=== PATIENT | female | born 2000 | race Two or more races ===

== ENCOUNTER 2025-07-20 11:56 | Observation (INO) | payer MEDICAID ==
[2025-07-20] MEDS ORDERED: PREN-96 PO (12:21)
--- NOTE | 2025-07-21 11:01 | DVHDS2 ---
Physician Discharge Progress N Final Diagnosis: polyhydramnia 33 wks Operations or Procedures: Operations or Procedures nst reactive reviwed,sono Condition on Discharge: Good Disposition: Home Discharge Instructions: Diet: Regular Activity: No Restrictions, As Tolerated Follow Up/Referral: as scheduled. Medications: na Follow Up Care: Specialist: 4d Discharge Statement: "Patient was advised to return to the ER or call 911 if any headaches, dizziness, shortness of breath, chest pain, abdominal pain, bleeding, fevers, or worsening of medical condition. Patient was counseled about treatment plan, medications, possible side effects, patientverbalized understanding. All questions were answered to the best of my ability. This discharge took greater then 30 minutes in planning, reviewing documentation, counseling the patient, and discussing with other team members." Visit Coding OBGYN Date of Service: Jul 20, 2025 Billing Provider: ILENE LEONG DO [employer] Common Visit Codes: [id number] OBS CARE (HIGH) [employer] Procedure Codes: 65695-83- NON-STRESS TEST ILENE LEONG DO Jul 21, 2025 11:01
== END 2025-07-20 12:53 | disposition home or self-care (01) ==
LOC: UNDOADMOB 11:56 → LDRP 11:56
PROVIDERS: ADMIT Obstetrics & Gynecology; ATTEND Obstetrics & Gynecology
DX: O40.3XX0 Polyhydramnios, third trimester, not applicable or unspecified (principal); Z3A.33 33 weeks gestation of pregnancy; Z98.890 Other specified postprocedural states
CPT/HCPCS: 59025; 81002; 94760; G0378